=== PATIENT | male | born 1950 | race Caucasian/White ===

== ENCOUNTER 2017-04-24 09:06 | Outpatient (CLI) | payer MEDICARE, OTHER ==
--- NOTE | 2017-04-24 11:28 | CT ---
CT PARANASAL SINUSES NONCONTRAST: Date: 04/24/17 CLINICAL HISTORY: Chronic sinusitis. FINDINGS: The frontal sinus is clear. There is mucosal thickening of the ethmoid sinus bilaterally. Evidence of prior maxillary antrostomy bilaterally with resection of bilateral middle turbinates. There is promi nent circumferential mucosal thickening throughout the left maxillary sinus and mucosal thickening is centered at the right maxillary antrum. There is rightward nasal septal spur. Small posterior fluid level seen within the right maxillary sinus. There are mild dependent fluid levels of the sphenoid si nus. No evidence of otomastoid effusion. IMPRESSION: Evidence of prior paranasal sinus surgery with scattered areas of mucosal thickening and mild paranas al sinus fluid as discussed above. POS: [facility]
--- NOTE | 2017-04-24 11:59 | CT ---
POST CONTRAST SOFT TISSUE NECK CT: HISTORY: Neck mass. Neck pain. COMPARISON: None. TECHNIQUE: Post contrast soft tissue neck CT is performed in the axial pain. Reformatted images are submitted f or interpretation. FINDINGS: There is bilateral maxillary sinus mucosal disease. There appears to be previous sinonasal surgery, incompletely evaluated. Refer to separate sinus CT report for further details. There is no abnormality in the mucosa with regard to the oral cavity. The aerodigestive tract appear s to be patent. Midline fatty raphe of the tongue appears to be preserved. The epiglottis has a nor mal caliber. The pre-epiglottic fat is preserved. There is no prevertebral soft tissue swelling. There are varying degrees of central canal stenosis and foraminal narrowing, on the basis of degenera tive change. Symmetric attenuation of the parotid and submandibular glands. Symmetric attenuation of the sternocl eidomastoid muscles. There is scattered nonspecific, nonenlarged bilateral soft tissue neck lymph nodes. There is slightly irregular attenuation involving the right oral cavity, at the level of the mandible , with small pockets of air attenuation. This irregular area is somewhat ill defined and cannot be a dequately assessed due to beam attenuation artifact and lack of IV contrast. Better evaluation with post contrast imaging is recommended (axial image #[id number]). At the level of the palpable marker, in the midline of the neck, at the C4-C5 level, there is minimal stranding of the subcutaneous fat without evidence of mass, abscess, or lymphadenopathy. Nonspecifi c calcification in the posterior neck soft tissues, along the midline, is noted. This calcification measures approximately 1 cm in craniocaudal dimension. The right thyroid lobe is heterogeneous. The re appears to be a 1.4 cm hypodense mass. IMPRESSION: 1. Abnormal attenuation at the level of the right mandible, possibly in the gingiva along the right mandible. Findings are of uncertain significance and may, in fact, be artifactual. Limited evaluati on due to lack of intravenous contrast. 2. No abnormality noted at the level of the palpable marker. 3. Heterogeneous right thyroid lobe. Nonemergent thyroid ultrasound. POS: [facility]
== END 2017-04-24 09:07 | disposition home or self-care (01) ==
LOC: SCSCT 09:06
DX: M54.2 Cervicalgia (principal); R22.1 Localized swelling, mass and lump, neck; J32.9 Chronic sinusitis, unspecified; Z98.890 Other specified postprocedural states
CPT/HCPCS: 70490

== ENCOUNTER 2018-06-25 08:00 | Outpatient (CLI) | payer MEDICARE, OTHER ==
--- NOTE | 2018-06-25 11:22 | CT ---
CT Abdomen Pelvis W Con: 06/25/2018 12:00 AM CLINICAL INFORMATION: Diagnosis code R10.9 and R10.2 COMPARISON: None. Procedure: Multiple contiguous axial images were obtained and a CT of the abdomen and pelvis with IV contrast.Or al contrast was administered. Coronal reformats were performed. FINDINGS: Lower Chest: within normal limits. Abdomen: Liver: within normal limits. Bile Ducts: Normal caliber. Gallbladder: No calcified gallstones. Normal caliber wall. Pancreas: within normal limits. Spleen: within normal limits. Adrenals: within normal limits. Kidneys: within normal limits. Pelvis: Reproductive Organs: No pelvic masses. Ureters: within normal limits. Bladder: within normal limits. Peritoneum: No ascites or free air, no fluid collection. Bowel: Normal caliber. Mesentery and Retroperitoneum: No enlarged mesenteric or retroperitoneal lymph nodes. Vessels: Abdominal Wall: within normal limits. Bones: There is scattered degenerative and osteoarthritic change. IMPRESSION: No evidence of acute intraabdominal\pelvic abnormality.
== END 2018-06-25 08:01 | disposition home or self-care (01) ==
LOC: SCSCT 08:00
PROVIDERS: ATTEND Surgery
DX: R10.2 Pelvic and perineal pain (principal)
CPT/HCPCS: 74177; 82565

== ENCOUNTER 2022-05-06 03:16 | Emergency (ER) | payer MEDICARE, OTHER ==
[2022-05-06] MEDS ORDERED: Ketorolac Tromethamine 30 MG/ML VIAL ONE (03:40)
[2022-05-06] MEDS ORDERED: Ondansetron PF 4 MG/2 ML Vial ONE (03:40)
[2022-05-06] MEDS ORDERED: Morphine 4 MG/ML VIAL ONE (03:40)
[2022-05-06 03:50] LABS: #Eosinphils 0.1 thou/uL (0.0-0.7); #Lymphocytes 0.5 thou/uL (1.20-3.40); #Monocytes 0.6 thou/uL (0.11-0.59); #Neutrophils 8.2 thou/uL (1.40-6.50); %Basophils 0.3 % (0.0-1.0); %Eosinophils 0.8 % (0.0-10.0); %Lymphocytes 4.8 % (21.0-51.0); %Monocytes 6.7 % (0.0-10.0); %Neutrophils 87.4 % (42.0-75.0); Hemoglobin 15.2 g/dL (14.0-18.0); Mean Corpuscular HGB CONC 34.1 g/dL (32.0-36.0); Mean Corpuscular Hemoglobin 33.1 pg (27.0-31.0); Mean Corpuscular Volume 97.1 fl (78.0-98.0); Mean Platelet Volume 8.3 fL (7.4-10.4); Platelet Count 160 10x3/uL (130-400); RBC Distribution Width 12.3 % (11.5-14.5); Red Blood Cell (RBC) Count 4.58 mill/uL (4.70-6.10); White Blood Cell (WBC) Count 9.3 10x3/uL (4.8-10.8)
[2022-05-06 04:24] LABS: ALT (SGPT) 12 U/L (8-55); AST (SGOT) 15 U/L (5-34); Albumin 4.2 g/dL (3.4-4.8); Alkaline Phosphatase 78 U/L (40-110); Anion Gap 12 mmol/L (10-20); BUN (Urea Nitrogen) 22 mg/dL (8.4-25.7); Bilirubin, Total 0.8 mg/dL (0.2-1.2); Calc. Creatinine Clearance 0 mL/min (70-130); Calcium 8.9 mg/dL (7.8-10.44); Carbon Dioxide 23 mmol/L (23-31); Chloride 102 mmol/L (98-107); Estimated GFR 69; Globulin 2.3 g/dL (2.4-3.5); Glucose 140 mg/dL (83-110); Lipase 217 U/L (8-78); Magnesium 1.9 mg/dL (1.6-2.6); Potassium 3.5 mmol/L (3.5-5.1); Protein, Total 6.5 g/dL (5.8-8.1); Sodium 133 mmol/L (136-145)
[2022-05-06 05:34] LABS: Bacteria/HPF None Seen HPF (None Seen); Bilirubin Negative (Negative); Blood, Urine 3+ (Negative); Clarity Clear (Clear); Glucose, Urine (Dipstick) Normal (Negative); Ketone, Urine Negative (Negative); Leukocyte Negative Leu/uL (Negative); Nitrite Negative (Negative); Protein, Urine (Dipstick) Negative (Neg-Trace); RBC/HPF Greater than 50 HPF (0-3); Specific Gravity, Urine 1.017 (1.002-1.036); Squamous Epithelial None Seen HPF (0-3); Urobilinogen Normal mg/dL (Less than 2)
== END 2022-05-06 06:46 | disposition home or self-care (01) ==
LOC: ERS 03:16
DX: N13.2 Hydronephrosis with renal and ureteral calculous obstruction (principal); I86.1 Scrotal varices; N44.2 Benign cyst of testis; I10 Essential (primary) hypertension
CPT/HCPCS: 74176; 76870; 80053; 81003; 81015; 83690; 83735; 85025; 87086; 93976; 96361; 96374; 96375; J1885; J2270; J2405